=== PATIENT | male | born 1985 | race Caucasian/White ===

== ENCOUNTER 2024-07-27 10:53 | Emergency (ER) | payer SELFPAY | END 2024-07-27 11:22 | disposition home or self-care (01) | LOC: MW.ED 10:53 | DX: S39.011A Strain of muscle, fascia and tendon of abdomen, initial encounter (principal); Z75.8 Other problems related to medical facilities and other health care; Z88.5 Allergy status to narcotic agent; X50.0XXA Overexertion from strenuous movement or load, initial encounter; Y93.89 Activity, other specified; Y99.0 Civilian activity done for income or pay | CPT/HCPCS: 99283 ==